=== PATIENT | male | born 1970 | race Caucasian/White ===

== ENCOUNTER 2018-07-07 07:18 | Inpatient (IN) | payer MEDICAID ==
[2018-07-07] MEDS: SODIUM CHLORIDE 0.9% 1L BAG IV* (07:44)
[2018-07-07 07:51] LABS: ADD MAN DIFF? NO
[2018-07-07 07:56] LABS: WHITE BLOOD COUNT 20.9 10^3/ul (4.8-10.8)
[2018-07-07 07:56] LABS: ABNORMAL IP MESSAGE 1; BASOPHIL # 0.1 10^3/ul (0.0-0.1); BASOPHILS % 0.2 % (0.0-2.0); HEMATOCRIT 45.7 % (42.0-52.0); HEMOGLOBIN 15.6 g/dl (14.0-18.0); LYMPHOCYTES # 0.6 10^3/ul (0.8-2.9); LYMPHOCYTES % 2.8 % (15.0-51.0); MEAN CORPUSCULAR HEMOGLOBIN 30.6 pg (29.0-33.0); MEAN CORPUSCULAR HGB CONC 34.1 g/dl (32.0-37.0); MEAN CORPUSCULAR VOLUME 89.8 fl (82.0-101.0); MEAN PLATELET VOLUME 10.5 fl (7.4-10.4); MONOCYTE # 1.2 10^3/ul (0.3-0.9); MONOCYTES % 5.8 % (0.0-11.0); NEUTROPHIL # 18.8 10^3/ul (1.6-7.5); NEUTROPHILS % 90.1 % (39.0-77.0); PLATELET COUNT 174 10^3/UL (140-415); POSITIVE DIFF @See below; RED BLOOD COUNT 5.09 10^6/ul (4.70-6.10); RED CELL DISTRIBUTION WIDTH 11.8 % (11.5-14.5)
[2018-07-07 08:00] LABS: ADD UMIC YES; UR ASCORBIC ACID NEGATIVE (NEGATIVE); UR BILIRUBIN (Dip) NEGATIVE (NEGATIVE); UR BLOOD (Dip) NEGATIVE (NEGATIVE); UR CLARITY CLEAR (CLEAR); UR COLOR YELLOW (YELLOW); UR GLUCOSE (Dip) NEGATIVE (NEGATIVE); UR KETONES (Dip) NEGATIVE (NEGATIVE); UR LEUKOCYTE ESTERASE (Dip) NEGATIVE Leu/ul (NEGATIVE); UR NITRITE (Dip) NEGATIVE (NEGATIVE); UR RBC 12 /HPF (0-5); UR SPECIFIC GRAVITY (Dip) 1.025 (1.003-1.030); UR TOTAL PROTEIN (Dip) 1+ mg/dl (NEGATIVE); UR UROBILINOGEN (Dip) 2+ mg/dL (NEGATIVE); UR WBC 1 /HPF (0-5)
[2018-07-07] MEDS: IBUPROFEN 800 MG TAB PO (08:01)
[2018-07-07] MEDS: ACETAMINOPHEN 500 MG TAB PO (08:01)
[2018-07-07 08:17] LABS: INR 0.96; PROTIME 12.9 Sec (11.9-14.9)
[2018-07-07 08:18] LABS: PARTIAL THROMBOPLASTIN TIME 28.8 Sec (23.0-35.0)
[2018-07-07 08:23] LABS: ALANINE AMINOTRANSFERASE 39 IU/L (13-69); ALBUMIN 4.3 g/dl (3.3-4.9); ALBUMIN/GLOBULIN RATIO 1.22; ALKALINE PHOSPHATASE 81 IU/L (42-121); AMYLASE 87 U/L (11-123); ANION GAP 8 (5-13); ASPARTATE AMINO TRANSFERASE 28 IU/L (15-46); BILIRUBIN,INDIRECT 0.5 mg/dl (0-1.1); BILIRUBIN,TOTAL 0.5 mg/dl (0.2-1.3); BLOOD UREA NITROGEN 18 mg/dl (7-20); CALCIUM 9.7 mg/dl (8.4-10.2); CARBON DIOXIDE 27 mmol/L (21-31); CHLORIDE 104 mmol/L (97-110); CREATININE 1.01 mg/dl (0.61-1.24); Estimated GFR > 60 mL/min (>60); GLUCOSE 123 mg/dl (70-220); LIPASE 108 U/L (23-300); POTASSIUM 4.3 mmol/L (3.5-5.1); SODIUM 139 mmol/L (135-144); TOTAL PROTEIN 7.8 g/dl (6.1-8.1)
[2018-07-07 08:34] LABS: TROPONIN-I < 0.012 ng/ml (0.000-0.120)
[2018-07-07] MEDS: CEFTRIAXONE 1 GM/50 ML (PMX) 50 ML IVPB ×2 (08:39→15:30)
[2018-07-07] MEDS: SOD CHLORIDE 0.9% 100 ML (09:03)
[2018-07-07] MEDS: IODIXANOL LOCM 100 ML BTL (09:04)
[2018-07-07] MEDS: AZITHROMYCIN 500MG/NS (PMX) 250 ML IV (09:29)
[2018-07-07] MEDS ORDERED: ACETAMINOPHEN 325 MG TAB PO (10:30)
[2018-07-07] MEDS ORDERED: ONDANSETRON 4 MG INJ IV (10:30)
[2018-07-07] MEDS: SOD CHLORIDE 0.9% 1,000 ML IV ×3 (11:06→22:30)
[2018-07-07 12:16] LABS: LACTIC ACID 1.3 mmol/L (0.5-2.0)
[2018-07-07] MEDS: ACETAMINOPHEN 325 MG TAB PO ×2 (15:55→21:41)
[2018-07-07] MEDS: OSELTAMIVIR 75 MG CAP PO ×2 (17:07→20:20)
[2018-07-07] MEDS: AZITHROMYCIN 250 MG in SOD CHLORIDE 0.9% 250 ML IVPB (17:07)
[2018-07-07] MEDS: IBUPROFEN 200 MG TAB PO ×2 (20:20→23:17)
[2018-07-07] MEDS: SOD CHLORIDE 0.9% 250 ML IV (20:20)
[2018-07-08] MEDS ORDERED: ACETAMINOPHEN 1000MG/100ML IV 100 ML IVPB
[2018-07-08] MEDS: SOD CHLORIDE 0.9% 1,000 ML IV ×2 (03:26→11:21)
[2018-07-08] MEDS: OSELTAMIVIR 75 MG CAP PO (08:50)
[2018-07-08] MEDS: ACETAMINOPHEN 325 MG TAB PO (13:11)
[2018-07-08] MEDS: CEFTRIAXONE 1 GM/50 ML (PMX) 50 ML IVPB (14:42)
[2018-07-08] MEDS: AZITHROMYCIN 250 MG in SOD CHLORIDE 0.9% 250 ML IVPB (15:22)
== END 2018-07-08 20:05 | disposition home or self-care (01) | DRG 872 ==
LOC: E/R 07:18 → PP2 10:03
PROVIDERS: Family Medicine
DX: A41.9 Sepsis, unspecified organism (principal); N20.0 Calculus of kidney; J02.9 Acute pharyngitis, unspecified; J35.1 Hypertrophy of tonsils
CPT/HCPCS: 36415; 71045; 74177; 80053; 81001; 82150; 83605; 83690; 84484; 85025; 85610; 85730; 87040-91; 87086; 87400; 87430; 93005; 96365; 96367; 99285-25

== ENCOUNTER 2018-08-18 12:53 | Emergency (ER) | payer MEDICAID ==
[2018-08-18] MEDS: DIPHTH/TET/ACEL PERTUSS (ADULT) 0.5 ML VIAL IM* (15:07)
== END 2018-08-18 16:01 | disposition home or self-care (01) ==
LOC: FTE 12:53
DX: S61.032A Puncture wound without foreign body of left thumb without damage to nail, initial encounter (principal); F17.210 Nicotine dependence, cigarettes, uncomplicated; W29.4XXA Contact with nail gun, initial encounter; Y92.9 Unspecified place or not applicable; Z23 Encounter for immunization
CPT/HCPCS: 73140; 90471; 90715; 99283-25